=== PATIENT | female | born 1945 | race Caucasian/White ===

== ENCOUNTER 2022-01-29 09:52 | Outpatient (CLI) | payer MEDICARE, BC | END 2022-01-29 09:53 | disposition home or self-care (01) | LOC: CSHRAD 09:52 | PROVIDERS: ATTEND Internal Medicine Hematology & Oncology | DX: C50.411 Malignant neoplasm of upper-outer quadrant of right female breast (principal); J91.0 Malignant pleural effusion; C79.51 Secondary malignant neoplasm of bone; J84.89 Other specified interstitial pulmonary diseases | CPT/HCPCS: 71046 ==

== ENCOUNTER 2022-08-29 09:42 | Outpatient (CLI) | payer MEDICARE, BC | END 2022-08-29 09:43 | disposition home or self-care (01) | LOC: CSHMAMMO 09:42 | PROVIDERS: ATTEND Family Medicine | DX: Z13.820 Encounter for screening for osteoporosis (principal); Z78.0 Asymptomatic menopausal state; M85.89 Other specified disorders of bone density and structure, multiple sites | CPT/HCPCS: 77080 ==